=== PATIENT | male | born 2000 | race African-American/Black ===

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

== ENCOUNTER 2025-06-15 11:54 | Emergency (ER) | payer SELFPAY ==
[~2025-06-15] VITALS: Ht 180.3 cm; Wt 72.2 kg
[2025-06-15] MEDS: DICYCLOMINE HCL 20 MG/2 ML VIAL IM ONE (12:45)
[2025-06-15] MEDS: ONDANSETRON HCL INJ 2MG/ML 2ML 2 MG/ML VIAL IV STA (12:45)
[2025-06-15] MEDS: SODIUM CHLORIDE 0.9% 1000ML 1,000 ML IV ONE (12:45)
[2025-06-15] MEDS ORDERED: ONDANSETRON ODT4 MG PO (16:31)
[2025-06-15 16:43] VITALS: PULSE 65; RESP 14; TEMP 98.9; O2SAT 100
== END 2025-06-15 16:43 | disposition home or self-care (01) ==
LOC: FSED 12:30
DX: R11.2 Nausea with vomiting, unspecified (principal); K52.9 Noninfective gastroenteritis and colitis, unspecified; R10.13 Epigastric pain; F17.210 Nicotine dependence, cigarettes, uncomplicated
CPT/HCPCS: 36415; 80048; 80076; 81003; 83690; 85025; 96372; 96374; 99284; J0500; J2405; J7030